=== PATIENT | female | born 1995 | race Two or more races ===

== ENCOUNTER 2021-10-26 10:06 | Emergency (ER) | payer OTHER ==
[~2021-10-26] VITALS: Ht 160 cm; Wt 71.7 kg
== END 2021-10-26 12:43 | disposition home or self-care (01) ==
LOC: ER 10:06
DX: N39.0 Urinary tract infection, site not specified (principal); B96.0 Mycoplasma pneumoniae [M. pneumoniae] as the cause of diseases classified elsewhere

== ENCOUNTER 2021-11-29 02:45 | Outpatient (CLI) | payer OTHER | END 2021-11-29 03:00 | disposition home or self-care (01) | LOC: PPH VACUNA 02:45 | PROVIDERS: ATTEND Emergency Medicine Pediatric Emergency Medicine | DX: Z23 Encounter for immunization (principal) ==